=== PATIENT | female | born 1995 | race Caucasian/White ===

== ENCOUNTER 2022-03-17 22:19 | Outpatient (REF) | payer MEDICAID, SELFPAY ==
[2022-03-17 21:55] LABS: HCT 39.5 % (36.0-46.0); HGB 13.2 g/dL (11.2-15.7); MCH 27.2 pg (27.0-33.0); MCHC 33.4 % (32.0-36.0); MCV 81 fL (80-95); MPV 9.6 fL (8.0-11.0); Platelet Count 325 10^3/uL (130-400); RBC 4.85 10^6/uL (3.93-5.22); RDW 13.2 % (11.7-14.6); RDW-SD 38.5 fL; WBC 7.89 10^3/uL (4.4-10.8)
[2022-03-17 22:18] LABS: Hemoglobin A1C 5.8 % (<5.7)
[2022-03-17 22:27] LABS: Vitamin D 25 Total 16.7 ng/mL (30-100)
[2022-03-17 22:30] LABS: ALT 26 U/L (14-59); AST 19 U/L (15-37); Albumin 3.7 g/dL (3.4-5.0); Alkaline Phosphatase 83 U/L (46-116); Anion Gap 12.3 mmol/L (3-11); BUN 17 mg/dL (7-18); Bilirubin, Total 0.5 mg/dL (0.2-1.0); CO2 22.7 mmol/L (21.0-32.0); CREATININE 0.7 mg/dL (0.55-1.02); Calcium 9.3 mg/dL (8.5-10.1); Calculated LDL 108 mg/dL (<100); Chloride 104 mmol/L (98-107); Cholesterol 173 mg/dL (<200); Glucose 81 mg/dL (74-106); HDL Cholesterol 38 mg/dL (40-60); Potassium 3.8 mmol/L (3.5-5.1); Sodium 139 mmol/L (136-145); TSH (W/Ref FT4) 2.05 uIU/mL (0.36-3.74); Total Protein 7.9 g/dL (6.4-8.2); Triglyceride 135 mg/dL (<150); Vitamin B12 297 pg/mL (193-986)
== END 2022-03-17 22:20 | disposition home or self-care (01) ==
LOC: NCHCN 22:19
PROVIDERS: Visit Provider Nurse Practitioner Family
DX: E66.9 Obesity, unspecified (principal); F41.9 Anxiety disorder, unspecified; F32.9 Major depressive disorder, single episode, unspecified; Z00.00 Encounter for general adult medical examination without abnormal findings
CPT/HCPCS: 80053; 80061; 82306; 85027; 82607; 83036; 84443

== ENCOUNTER 2022-04-05 18:33 | Outpatient (REF) | payer MEDICAID, SELFPAY ==
[2022-04-05 23:44] LABS: FSH 1.2 mIU/mL (See Note); Prolactin 8.8 ng/mL (See Note)
[2022-04-15 15:11] LABS: Testosterone, Free 0.54 ng/dL (<0.13-1.08); Testosterone, Total 20 ng/dL (8-60)
== END 2022-04-05 18:34 | disposition home or self-care (01) ==
LOC: NCHCN 18:33
PROVIDERS: PCP Nurse Practitioner Family; Visit Provider Nurse Practitioner Family
DX: N93.8 Other specified abnormal uterine and vaginal bleeding (principal)
CPT/HCPCS: 84402; 84403; 83001; 84146

== ENCOUNTER 2022-05-12 22:11 | Outpatient (REF) | payer MEDICAID, SELFPAY ==
[2022-05-12 22:30] LABS: Vitamin D 25 Total 27.9 ng/mL (30-100)
== END 2022-05-12 22:12 | disposition home or self-care (01) ==
LOC: NCHCN 22:11
PROVIDERS: PCP Nurse Practitioner Family; Visit Provider Nurse Practitioner Family
DX: E55.9 Vitamin D deficiency, unspecified (principal)
CPT/HCPCS: 82306

== ENCOUNTER 2022-07-05 16:17 | Outpatient (REF) | payer OTHER, SELFPAY ==
[2022-07-05 21:53] LABS: Vitamin B12 456 pg/mL (193-986)
[2022-07-07 04:55] LABS: Vitamin D 25 Total 34.5 ng/mL (30-100)
== END 2022-07-05 16:18 | disposition home or self-care (01) ==
LOC: NCHCN 16:17
PROVIDERS: PCP Nurse Practitioner Family; Visit Provider Nurse Practitioner Family
DX: E55.9 Vitamin D deficiency, unspecified (principal); E53.8 Deficiency of other specified B group vitamins
CPT/HCPCS: 82306; 82607

== ENCOUNTER 2022-10-03 09:02 | Outpatient (REF) | payer MEDICAID, SELFPAY | END 2022-10-03 09:03 | disposition home or self-care (01) | LOC: NCHCN 09:02 | PROVIDERS: PCP Nurse Practitioner Family; Visit Provider Nurse Practitioner Family | DX: E55.9 Vitamin D deficiency, unspecified (principal) | CPT/HCPCS: 82306 ==

== ENCOUNTER 2023-01-02 21:41 | Outpatient (REF) | payer MEDICAID, SELFPAY ==
[2023-01-02 21:55] LABS: Abs Immature Grans 0.03 10^3/uL (0.0-0.06); Absolute Basophil Count 0.03 10^3/uL (0.0-0.2); Absolute Eosinophil Count 0.11 10^3/uL (0.0-0.7); Absolute Lymphocyte Count 2.36 10^3/uL (1.2-3.4); Absolute Monocyte Count 0.47 10^3/uL (0.1-0.8); Absolute Neutrophil Count 4.23 10^3/uL (1.2-6.7); Basophils % 0.4; Eosinophils % 1.5; HCT 43.1 % (36.0-46.0); Immature Grans % 0.4; Lymphocytes % 32.6; MCHC 32.5 % (32.0-36.0); MCV 83 fL (80-95); MPV 9.3 fL (8.0-11.0); Monocytes % 6.5; Neutrophils % 58.6; Platelet Count 332 10^3/uL (130-400); RBC 5.18 10^6/uL (3.93-5.22); RDW 13.7 % (11.7-14.6); RDW-SD 41.3 fL; WBC 7.23 10^3/uL (4.4-10.8)
[2023-01-02 22:10] LABS: Calculated LDL 91 mg/dL (<100); Cholesterol 171 mg/dL (<200); HDL Cholesterol 49 mg/dL (40-60); Triglyceride 157 mg/dL (<150)
== END 2023-01-02 21:42 | disposition home or self-care (01) ==
LOC: NCHCN 21:41
PROVIDERS: PCP Nurse Practitioner Family; Visit Provider Nurse Practitioner Family
DX: F41.8 Other specified anxiety disorders (principal); Z79.899 Other long term (current) drug therapy; Z51.81 Encounter for therapeutic drug level monitoring
CPT/HCPCS: 80061; 85025

== ENCOUNTER 2023-06-21 18:17 | Outpatient (REF) | payer MEDICAID, SELFPAY ==
[2023-06-21 21:38] LABS: ALT 35 U/L (14-59); AST 23 U/L (15-37); Albumin 3.6 g/dL (3.4-5.0); Alkaline Phosphatase 99 U/L (46-116); Anion Gap 11.9 mmol/L (3-11); BUN 21 mg/dL (7-18); Bilirubin, Total 0.4 mg/dL (0.2-1.0); CO2 23.1 mmol/L (21.0-32.0); CREATININE 0.6 mg/dL (0.55-1.02); Calcium 9.5 mg/dL (8.5-10.1); Chloride 103 mmol/L (98-107); Estimated GFR 127.67 (mL/min/1.73m2); Glucose 92 mg/dL (74-106); Potassium 4.1 mmol/L (3.5-5.1); Sodium 138 mmol/L (136-145)
== END 2023-06-21 18:18 | disposition home or self-care (01) ==
LOC: NCHCN 18:17
PROVIDERS: PCP Nurse Practitioner Family; Visit Provider Nurse Practitioner Family
DX: I10 Essential (primary) hypertension (principal); E66.9 Obesity, unspecified; R73.03 Prediabetes
CPT/HCPCS: 80053

== ENCOUNTER 2024-11-27 18:50 | Outpatient (REF) | payer MEDICAID, SELFPAY ==
[2024-11-27 22:00] LABS: COMMENT (LAB VIEW ONLY) 111.28 mg/dL; PROTEIN 16.8 mg/dL; Prot/Crea Ur Ratio 0.15
[2024-11-27 22:02] LABS: ALT 27 U/L (14-59); AST 16 U/L (15-37); Albumin 3.6 g/dL (3.4-5.0); Alkaline Phosphatase 82 U/L (46-116); Anion Gap 11.7 mmol/L (3-11); BUN 16 mg/dL (7-18); Bilirubin, Total 0.3 mg/dL (0.2-1.0); CO2 22.3 mmol/L (21.0-32.0); CREATININE 0.8 mg/dL (0.55-1.02); Calcium 9.5 mg/dL (8.5-10.1); Calculated LDL 66 mg/dL (<100); Chloride 109 mmol/L (98-107); Cholesterol 147 mg/dL (<200); Glucose 93 mg/dL (74-106); HDL Cholesterol 42 mg/dL (>or=50); Potassium 4.2 mmol/L (3.5-5.1); Sodium 143 mmol/L (136-145); TSH (W/Ref FT4) 3.37 uIU/mL (0.36-3.74); Total Protein 8.1 g/dL (6.4-8.2); Triglyceride 197 mg/dL (<150)
== END 2024-11-27 18:51 | disposition home or self-care (01) ==
LOC: NCHCN 18:50
PROVIDERS: PCP Nurse Practitioner Family; Visit Provider Nurse Practitioner Family
DX: I10 Essential (primary) hypertension (principal); Z13.220 Encounter for screening for lipoid disorders
CPT/HCPCS: 80053; 80061; 82565; 84156; 84443